=== PATIENT | female | born 1970 | race Caucasian/White ===

== ENCOUNTER 2022-07-19 07:51 | Outpatient (REF) | payer OTHER, SELFPAY ==
--- NOTE | ~2022-07-19 | MR_ITS ---
EXAMINATION: MRI OF THE BRAIN WITHOUT CONTRAST CLINICAL INFORMATION: 52-year-old with dizziness. Evaluate for vertebrobasilar stroke. COMPARISON: None TECHNIQUE: Multiplanar multisequence MR imaging of the brain was done without IV contrast. FINDINGS: BRAIN VOLUME: Mild generalized diffuse supratentorial parenchymal volume loss, with a slightly biparietal predominance within the limitations of qualitative assessment. STRUCTURAL: No malformations. BRAIN AND MENINGES: DWI sequence demonstrates no restricted diffusion to suggest acute or subacute cerebral ischemia. A small remote infarct is seen in the right inferior cerebellar hemisphere, in the PICA distribution. There is a faint, thin curvilinear zone of FLAIR/T2 signal hyperintensity within the subcortical white matter of the right frontal lobe on image 16 of series 5, which is nonspecific. The remainder of the brain is normal in morphology and signal intensity. Hightower-white matter differentiation is maintained. Gradient refocused imaging demonstrates no abnormal susceptibility-weighted signal loss to suggest hemorrhage, hemosiderin staining or abnormal mineralization. No extra-axial fluid collections, space-occupying process or mass effect are identified. VENTRICLES AND SUBARACHNOID SPACES: The ventricular system and subarachnoid spaces are within normal range; there is no hydrocephalus. ORBITAL STRUCTURES: Suspect mild bilateral proptosis, which is nonspecific. Recommend correlation with ophthalmologic examination. Otherwise grossly unremarkable within the limitations of the exam. VASCULAR: Signal voids are noted in the visualized major intracranial arterial vessels. OSSEOUS STRUCTURES, SINUSES/MASTOIDS, EXTRACRANIAL SOFT TISSUES: Osseous marrow signal intensity appears within normal limits. Visualized extracranial soft tissue structures are unremarkable. MR/MR head/brain wo con IMPRESSION: 1. There is a small remote infarct in the inferior right cerebellar hemisphere in the PICA distribution. No acute intracranial process. No evidence for acute or subacute cerebral ischemia, hemorrhage, extra-axial fluid collection, space-occupying process, mass effect or hydrocephalus. 2. Mild generalized diffuse supratentorial parenchymal volume loss with a slightly biparietal predominance within the limitations of qualitative assessment. 3. Faint curvilinear zone of subcortical white matter T2 hyperintensity in the right frontal lobe which is nonspecific. 4. Suspect mild bilateral proptosis, which is nonspecific. Recommend correlation with ophthalmologic examination.
== END 2022-07-19 07:52 | disposition home or self-care (01) ==
LOC: HO.MRI 07:51
PROVIDERS: Visit Provider Psychiatry & Neurology Neurology
DX: R42 Dizziness and giddiness (principal)
CPT/HCPCS: 70551

== ENCOUNTER 2022-08-01 15:02 | Outpatient (REF) | payer OTHER, SELFPAY ==
--- NOTE | ~2022-08-01 | CT_ITS ---
EXAMINATION: CT ANGIOGRAM NECK WITH CONTRAST CT ANGIOGRAM BRAIN WITH CONTRAST CLINICAL INFORMATION: Vertebrobasilar artery syndrome. COMPARISON: None. TECHNIQUE: Test bolus sequences followed by intravenous administration 70 mL of Omnipaque 350. Helical imaging was performed in the axial plane from the thoracic inlet to the skull vertex. Delayed postcontrast imaging of the head was also performed. The data was processed at the manufacturing technologist workstation for generation of MIP sequences. Angled MIPs and volume rendered reformatted images were also generated at an offline 3D workstation. Stenoses are assessed in accordance with NASCET criteria unless otherwise indicated. This CT examination was performed using dose optimization techniques as appropriate, variously including the following: *Automated exposure control *Adjustment of mA and/or kV according to patient size (this includes techniques or standardized protocols for targeted exams where dose is matched to indication/reason for exam; i.e. extremities or head) *Use of iterative reconstruction technique DLP: 2395 mGy-cm FINDINGS: Head CT: There is no intracranial hemorrhage, large acute infarction, or mass lesion. The ventricles are normal in size and configuration without evidence of hydrocephalus. There is a small chronic lacunar infarct within the right inferior cerebellum. No abnormal enhancement is seen. The visualized paranasal sinuses and mastoid air cells are clear. Neck CTA: There is a normal aortic arch with no significant stenosis of the great vessel origins. The common and internal carotid arteries are normal in course and caliber. Both vertebral artery origins are patent. A portion of the lower V2 vertebral artery segments are not diagnostically assessed due to artifact from cervical spine hardware. Where seen, the cervical vertebral arteries are patent with normal course and caliber. Head CTA: No intracranial aneurysm is seen. The intracranial internal carotid arteries appear normal. The anterior cerebral artery, anterior communicating artery, and middle cerebral arteries appear normal. The intradural vertebral arteries and basilar artery appear normal. The posterior cerebral arteries appear normal. The posterior communicating arteries are not seen. Non-vascular findings: Postoperative findings of prosthetic disc placement is seen at C6-C7. The cervical soft tissues are within normal limits. The upper lungs are clear. CT/CT angio head neck IMPRESSION: CT HEAD: No intracranial hemorrhage or large acute infarction. Small chronic lacunar infarct in the right cerebellum. CTA NECK: No stenosis in the major arteries of the neck. CTA HEAD: No large vessel occlusion or stenosis within the intracranial circulation.
[2022-08-01] MEDS: iohexoL 350 MG/ML 100 ML INFUS..BTL IV (17:03)
[2022-08-02 10:22] LABS: Creatinine POC 0.8 mg/dL (0.5-1.4); GFR POC > 60
== END 2022-08-01 15:03 | disposition home or self-care (01) ==
LOC: HO.CT 15:02
PROVIDERS: PCP Physician Assistant Medical; Visit Provider Psychiatry & Neurology Neurology
DX: G45.0 Vertebro-basilar artery syndrome (principal)
CPT/HCPCS: 70496; 70498; 82565; Q9967